=== PATIENT | female | born 1990 | race African-American/Black ===

== ENCOUNTER 2019-05-09 08:34 | Emergency (ER) | payer MEDICAID ==
[~2019-05-09] VITALS: Ht 167.6 cm; Wt 94.8 kg
[2019-05-09 10:11] VITALS: BP 128/72
== END 2019-05-09 11:17 | disposition home or self-care (01) ==
LOC: ER 08:34
DX: O20.0 Threatened abortion (principal); Z3A.10 10 weeks gestation of pregnancy
CPT/HCPCS: 36415; 76801; 84702

== ENCOUNTER 2019-11-28 04:00 | Inpatient (IN) | payer MEDICAID ==
[2019-11-28] VITALS (16 sets, daily range): BP systolic 116–156; BP diastolic 61–92
[~2019-11-28] VITALS: Ht 167.6 cm; Wt 108.9 kg
[2019-11-28] MEDS ORDERED: FERR-7 PO (05:01)
[2019-11-28] MEDS ORDERED: PREN-96 PO (05:01)
[2019-11-28 05:05] LABS: Basophils # (auto) 0 10 ^3/uL (0-0.2); Eosinophils # (auto) 0.1 10 ^3/uL (0-0.8); Eosinophils % (auto) 0.7 % (0.0-7.0); Hematocrit 33.3 % (36.0-46.0); Hemoglobin 10.9 g/dL (12.2-16.2); Lymphocytes # (auto) 2.7 10 ^3/uL (0.4-5.4); Mean Corpuscular Hgb Conc. 32.7 g/dL (32.0-36.0)
[2019-11-28 05:06] LABS: Urine Bacteria NONE SEEN /hpf (None Seen); Urine Blood Negative /uL (Negative); Urine Mucus FEW (None Seen); Urine WBC 4 /hpf (0 - 5)
[2019-11-28 05:07] LABS: Basophils % (auto) 0.3 % (0.0-2.0); Lymphocytes % (auto) 33.7 % (10.0-50.0); Mean Corpuscular Hemoglobin 26.6 pg (28.0-32.0); Mean Corpuscular Volume 81.4 fL (80.0-100.0); Monocytes # (auto) 0.8 10 ^3/uL (0-1.3); Monocytes % (auto) 9.7 % (0.0-12.0); Neutrophils # (auto) 4.4 10 ^3/uL (1.6-8.6); Neutrophils % (auto) 55.6 % (37.0-80.0); Nucleated Red Blood Cells % 0.1 %; Platelet Count (auto) 246 10^3/uL (140-450); Red Blood Cells 4.09 10^6/uL (4.0-5.20); Red Cell Distribution Width 14.8 % (11.8-14.3); White Blood Cell 7.9 10^3/uL (4.4-10.8)
[2019-11-28] MEDS ORDERED: LACTATED RINGER'S 1,000 ML IV ONE (05:15)
[2019-11-28 05:20] LABS: INR 0.98 (0.9-1.15); Partial Thromboplastin Time 26.6 sec (23.64-32.05)
[2019-11-28 05:23] LABS: Albumin 2.5 g/dL (3.4-5.0); Calcium 8.5 mg/dL (8.5-10.1); Potassium 3.6 mmol/L (3.5-5.1)
[2019-11-28 05:28] LABS: BUN/Creatinine Ratio 16.1; Bilirubin, Total 0.3 mg/dL (0.2-1.0)
[2019-11-28] MEDS ORDERED: OXYTOCIN 10UNIT/ML 1ML VIAL IV ONE (07:05)
[2019-11-28] MEDS ORDERED: PHENYLEPHRINE HCL 10 MG/ML VL IV ONE (07:05)
[2019-11-28] MEDS ORDERED: TETRACAINE 1% INJ 2 ML VIAL IJ ONE (07:08)
[2019-11-28] MEDS ORDERED: LACT. RINGERS/OXYTOCIN 20UNITS 1,000 ML IV SCH (07:16)
[2019-11-28] MEDS ORDERED: fentaNYL CITRATE 100 MCG/2 ML VL ONE (07:20)
[2019-11-28] MEDS ORDERED: MIDAZOLAM HCL 1MG/1ML-2 ML VIAL ONE (07:20)
[2019-11-28] MEDS ORDERED: MORPHINE SULF(PF) 0.5MG/ML 10ML VIAL ONE (07:20)
[2019-11-28] MEDS ORDERED: ONDANSETRON HCL 4 MG/2 ML VIAL IV PRN ×2 (07:30→08:45)
[2019-11-28] MEDS ORDERED: ceFAZolin 1GM/50ML 50 ML IV SCH (07:30)
[2019-11-28 07:45] LABS: Alcohol, Urine < 3.0 mg/dL (0-5); Amphetamine Screen, Urine NEGATIVE (NEGATIVE); Barbiturate Scree,Urine NEGATIVE (NEGATIVE); Benzodiazephine Screen, Urine NEGATIVE (NEGATIVE); Cannabinoid Screen, Urine NEGATIVE (NEGATIVE); Cocaine Screen, Urine NEGATIVE (NEGATIVE); Opiate Scree,Urine NEGATIVE (NEGATIVE); Phencyclidine Screen, Urine NEGATIVE (NEGATIVE)
[2019-11-28] MEDS ORDERED: ACCU-CHEK COMFORT CURVE STRIP VI ONE (08:45)
[2019-11-28] MEDS ORDERED: NALOXONE HCL 0.4 MG/ML VIAL IV PRN (08:45)
[2019-11-28] MEDS ORDERED: NALBUPHINE HCL 10 MG/1ml INJECTION SUBCUT ONE (08:45)
[2019-11-28] MEDS ORDERED: KETOROLAC TROMETH 15 mg/ml 1ML VL IV PRN (08:45)
[2019-11-28] MEDS ORDERED: MIDAZOLAM HCL 1MG/1ML-2 ML VIAL IV PRN (08:45)
[2019-11-28] MEDS ORDERED: DexAMETHasone SOD PHOS 10MG/1ML VIAL INJ IV PRN (08:45)
[2019-11-28] MEDS ORDERED: LABETALOL HCL 5 MG/ML 4ML SYRINGE IV PRN (08:45)
[2019-11-28] MEDS ORDERED: HYDROmorphone HCL 2 MG/ML VL IV PRN (08:45)
[2019-11-28] MEDS ORDERED: ePHEDrine SULFATE 50 MG/ML AMP IV PRN (08:45)
[2019-11-28] MEDS ORDERED: diphenhdrAMINE HCL 50 MG/1 ML VL IV PRN (08:45)
--- NOTE | 2019-11-28 09:05 | NUR ---
Report received from LAPPING MACHINE SET UP OPERATOR. Pt vital signs stable, incision clean and dry, and dressing intact. Fundus firm 1 above U. Will continue to monitor.
--- NOTE | 2019-11-28 09:30 | NUR ---
Teaching: Reviewed information in [employer] booklet with patient. Discussed benefits of and risks associated with not . Discussed different positions, proper latch, feeding cues, and baby-led . Provided information of medication side effects related to . All questions and concerns addressed at this time. Patient verbalized understanding of information.
--- NOTE | 2019-11-28 10:27 | NUR ---
Pericare performed. Pt cleaned new pad applied. Fundus firm at u, will continue to monitor.
--- NOTE | 2019-11-28 10:45 | NUR ---
Assumed care after receiving report from Brian Colindres and Jose Enrique Hubbard RN .
[2019-11-28] MEDS ORDERED: ACETAMINOPHEN IV 1000 MG/100ML (10MG/ML) IV ONE (12:15)
[2019-11-28] MEDS ORDERED: ACETAMINOPHEN IV 1000 MG/100ML (10MG/ML) IV PRN (13:45)
--- NOTE | 2019-11-28 15:03 | NUR ---
Report given to A Arleth Rn who will assume patient care.
[2019-11-28] MEDS: ceFAZolin 1GM/50ML 50 ML IV SCH ×2 (15:27→22:34)
--- NOTE | 2019-11-28 15:41 | NUR ---
Pericare performed at this time, minimal bleeding, new underpad and peripad placed.
--- NOTE | 2019-11-28 19:40 | NUR ---
Tresa given lochia is small no clots noted,
[2019-11-28 20:06] LABS: Basophils # (auto) 0 10 ^3/uL (0-0.2); Basophils % (auto) 0.4 % (0.0-2.0); Eosinophils # (auto) 0 10 ^3/uL (0-0.8); Monocytes # (auto) 0.6 10 ^3/uL (0-1.3); Monocytes % (auto) 7.4 % (0.0-12.0); Red Cell Distribution Width 14.6 % (11.8-14.3)
[2019-11-28 20:08] LABS: Eosinophils % (auto) 0.1 % (0.0-7.0); Hematocrit 35.1 % (36.0-46.0); Hemoglobin 11.4 g/dL (12.2-16.2); Lymphocytes # (auto) 1.4 10 ^3/uL (0.4-5.4); Lymphocytes % (auto) 16.4 % (10.0-50.0); Mean Corpuscular Hemoglobin 26.6 pg (28.0-32.0); Mean Corpuscular Hgb Conc. 32.5 g/dL (32.0-36.0); Mean Corpuscular Volume 81.8 fL (80.0-100.0); Neutrophils # (auto) 6.5 10 ^3/uL (1.6-8.6); Neutrophils % (auto) 75.7 % (37.0-80.0); Platelet Count (auto) 233 10^3/uL (140-450); Red Blood Cells 4.29 10^6/uL (4.0-5.20); White Blood Cell 8.6 10^3/uL (4.4-10.8)
--- NOTE | 2019-11-28 22:10 | NUR ---
Fundus firm at the umb. lochia is small no clots noted, hernandez catheter bag emptied with 225 ml's of urine noted, hernandez cath remains in place as ordered, pt sitting on edge of bed offers no c/o dizziness at this time, pt up and ambulated to bathroom with steady gait saritha care given pt able to return demonstration. Pt up and ambulating in the corridor. with steady gait no c/i dizziness at this time. 2044 Pt back to bed call angel within reach instructed to notify staff if exp any problems or has any concerns, no distress will continue to monitor
[2019-11-29] MEDS: MORPHINE SULFATE 4 MG/ML SYR/VIAL IV PRN ×2 (01:04→06:40)
[2019-11-29 03:00] VITALS: BP 128/70
[2019-11-29 04:06] LABS: RPR Non Reactive (Non Reactive)
--- NOTE | 2019-11-29 05:50 | NUR ---
Aviles catheter removed 225 ml's of dark urine emptied, instructions given on the importance of being able to urinate within a 6 hour time frame, pt verbalizes understanding.
[2019-11-29 06:06] LABS: Basophils # (auto) 0 10 ^3/uL (0-0.2); Basophils % (auto) 0.4 % (0.0-2.0); Eosinophils # (auto) 0 10 ^3/uL (0-0.8); Hematocrit 33.1 % (36.0-46.0); Hemoglobin 10.9 g/dL (12.2-16.2); Lymphocytes # (auto) 1.2 10 ^3/uL (0.4-5.4); Lymphocytes % (auto) 17.3 % (10.0-50.0); Mean Corpuscular Hemoglobin 26.7 pg (28.0-32.0); Mean Corpuscular Hgb Conc. 33.1 g/dL (32.0-36.0); Mean Corpuscular Volume 80.6 fL (80.0-100.0); Monocytes # (auto) 0.5 10 ^3/uL (0-1.3); Neutrophils # (auto) 5.1 10 ^3/uL (1.6-8.6); Neutrophils % (auto) 75.3 % (37.0-80.0); Nucleated Red Blood Cells % 0.1 %; Platelet Count (auto) 223 10^3/uL (140-450); Red Cell Distribution Width 14.4 % (11.8-14.3); White Blood Cell 6.7 10^3/uL (4.4-10.8)
--- NOTE | 2019-11-29 06:20 | NUR ---
Report received from Rhiannon Stanford RN on stable pt. Assumed care. Addendum: 11/29/19 at 0627 by Lydia Ramos RN Amended: Links added.
[2019-11-29 06:35] VITALS: BP 128/71
--- NOTE | 2019-11-29 06:35 | NUR ---
Lower abdominal dressing removed with some drainage noted, all portia intact, no redness, drainage, or bleeding noted from incision site. Abdominal binder and SCD's in place. Incentive spirometer at bedside, pt educated on the use of and importance of IS. Pt verbalizes understanding. Addendum: 11/29/19 at 1223 by Lydia Ramos RN Amended: Links added.
[2019-11-29] MEDS: ceFAZolin 1GM/50ML 50 ML IV SCH ×3 (06:39→22:18)
--- NOTE | 2019-11-29 07:00 | NUR ---
Hudson ECHAVARRIAM informed of elevated temperature and CBC results given. Orders received to give 300 ml LR fluid bolus, Tylenol 650mg PO, and Keep Ancef continuos every 8 hrs. Orders to be followed.
[2019-11-29] MEDS ORDERED: BISACODYL 10 MG RECT SUPP PR PRN (07:15)
[2019-11-29] MEDS ORDERED: ACETAMINOPHEN 325 MG TAB PO ONE ×2 (07:15→23:45)
[2019-11-29] MEDS ORDERED: HYDROcodone-ACET 5/325MG TAB PO PRN ×2 (07:15)
[2019-11-29] MEDS: LACTATED RINGER'S 1,000 ML IV SCH (07:53)
--- NOTE | 2019-11-29 08:46 | NUR ---
Temperature reassessed after pt receiving Tylenol 650 mg PO, 300ml LR fluid bolus, and PO hydration. Temp noted to be 101.7, ice packs applied to underarms and back of neck.
--- NOTE | 2019-11-29 09:45 | NUR ---
Dr. Herbert at nurses station, informed of VS Trends, elevated temps, medications given, and interventions performed. CBC results given and assessment of incision site given. Orders received to run Covid 19 test and move pt to room 1 for isolation, no new orders received at this time.
--- NOTE | 2019-11-29 10:00 | NUR ---
RN at bedside to explain POC with pt and significant other regarding Covid 19 nasal swab testing, per Dr. Herbert's orders. Pt educated on how the test is performed and when results would be back, pt also educated that she would be considered a person under investigation and moved to room 1 under isolation until her test results come back. Pt also informed that upon her wishes her could be from her and placed in another room or her may remain with her in her room. Pt also informed that if she wishes to have stay in the room with her, the pt would need to wash her hands prior to all care and and wear a mask at all times. Pt and significant other verbalizes understanding and agree with POC. Pt wishes for her to remain in the room with her. Hospital mask provided to pt.
--- NOTE | 2019-11-29 11:00 | NUR ---
Pt ambulates with steady gait in hallway with mask on to room 1, pushing open crib, with all belongings and significant other. No signs of discomfort noted.
[2019-11-29 11:19] VITALS: BP 129/71
[2019-11-29] MEDS: IBUPROFEN 800 MG TAB PO PRN ×2 (11:20→22:17)
[2019-11-29] MEDS: SIMETHICONE 80 MG CHEWABLE TABLET PO SCH ×3 (11:20→22:18)
[2019-11-29] MEDS: DOCUSATE SOD 100 MG CAP PO SCH ×2 (11:20→22:18)
[2019-11-29] MEDS ORDERED: LACTATED RINGER'S 1,000 ML IV SCH (14:15)
[2019-11-29 15:12] VITALS: BP 109/57
--- NOTE | 2019-11-29 18:15 | NUR ---
Report given to Barbara Murphy RN and Barbara Gomez RN on stable pt. Relinquished care. Addendum: 11/29/19 at 1827 by Lydia Ramos RN Amended: Links added.
[2019-11-29 19:00] VITALS: BP 120/68
--- NOTE | 2019-11-29 19:45 | NUR ---
Hematology calls unit and states they are unable to run COVID test tonight and will have to try again in the morning. Charge nurse made aware.
--- NOTE | 2019-11-29 20:30 | NUR ---
IV in left hand pulled out at this time. Catheter still intact. New IV access obtained in right hand, via clean sterile technique by inserting 20 gauge catheter after 1 attempt. IV secured properly. No trauma to site. Patient tolerated procedure well.
[2019-11-29 22:30] VITALS: BP 123/66
--- NOTE | 2019-11-29 23:40 | NUR ---
Patient c/o feeling warm, temperature taken of 100.5. Cooling measures given and provided pt with cool wash cloth. Jonathan STEINBERG called for update on patient. Orders given for Tylenol 650mg PO q4h and to draw CBC in the morning. Will follow orders.
[2019-11-29] MEDS ORDERED: ACETAMINOPHEN 325 MG TAB PO PRN (23:45)
[2019-11-30] VITALS (7 sets, daily range): BP systolic 118–139; BP diastolic 56–82
[2019-11-30] MEDS: SIMETHICONE 80 MG CHEWABLE TABLET PO SCH ×4 (05:34→21:31)
[2019-11-30 06:07] LABS: Basophils # (auto) 0 10 ^3/uL (0-0.2); Eosinophils # (auto) 0 10 ^3/uL (0-0.8); Hemoglobin 11.3 g/dL (12.2-16.2); Lymphocytes # (auto) 1.3 10 ^3/uL (0.4-5.4); Monocytes # (auto) 0.6 10 ^3/uL (0-1.3); Neutrophils # (auto) 2.4 10 ^3/uL (1.6-8.6); Red Blood Cells 4.24 10^6/uL (4.0-5.20)
[2019-11-30 06:09] LABS: Basophils % (auto) 0.5 % (0.0-2.0); Eosinophils % (auto) 0.2 % (0.0-7.0); Hematocrit 34.5 % (36.0-46.0); Lymphocytes % (auto) 31.1 % (10.0-50.0); Mean Corpuscular Hemoglobin 26.8 pg (28.0-32.0); Mean Corpuscular Hgb Conc. 32.9 g/dL (32.0-36.0); Mean Corpuscular Volume 81.5 fL (80.0-100.0); Monocytes % (auto) 12.8 % (0.0-12.0); Neutrophils % (auto) 55.4 % (37.0-80.0); Nucleated Red Blood Cells % 0.1 %; Platelet Count (auto) 211 10^3/uL (140-450); Red Cell Distribution Width 14.9 % (11.8-14.3); White Blood Cell 4.3 10^3/uL (4.4-10.8)
[2019-11-30] MEDS: ceFAZolin 1GM/50ML 50 ML IV SCH (07:28)
[2019-11-30] MEDS: DOCUSATE SOD 100 MG CAP PO SCH ×2 (09:41→21:31)
[2019-11-30] MEDS: IBUPROFEN 800 MG TAB PO PRN ×2 (13:32→22:36)
--- NOTE | 2019-11-30 14:44 | NUR ---
IV OUT Called to room d/t PT states "IV fell out." Catheter noted to be dangling. IV completely removed with tip intact, pressure dressing applied to site
--- NOTE | 2019-11-30 14:48 | NUR ---
Call placed to Dr Antonio, updated her on PT's IV out. Orders received to change abx to Keflex 500 PO QID
[2019-11-30] MEDS ORDERED: CEPHALEXIN 250 MG CAP PO SCH (15:00)
[2019-11-30] MEDS: CEPHALEXIN 250 MG CAP PO SCH (21:27)
[2019-12-01 03:06] VITALS: BP 128/73
[2019-12-01] MEDS: CEPHALEXIN 250 MG CAP PO SCH ×2 (04:31→09:28)
[2019-12-01] MEDS: SIMETHICONE 80 MG CHEWABLE TABLET PO SCH (06:00)
[2019-12-01 07:21] VITALS: BP 123/72
--- NOTE | 2019-12-01 07:50 | NUR ---
dr armendariz rounded on the pt, orders received to remove the portia and carried out
--- NOTE | 2019-12-01 07:58 | NUR ---
C/S Staple Removal DC Note: Orders received to remove portia. Portia removed using sterile technique. Lower abdominal incision approximated, no drainage/redness/inflammation visualized at time of removal. Steri-strips applied. Education provided on incisional care. Patient verbalized understanding and willingness to comply to instructions/teaching provided.
[2019-12-01] MEDS: DOCUSATE SOD 100 MG CAP PO SCH (10:00)
--- NOTE | 2019-12-01 10:02 | NUR ---
PT STATES HAD A BOWEL MOVEMENT
[2019-12-01 10:56] VITALS: BP 125/68
--- NOTE | 2019-12-01 11:00 | NUR ---
Discharge: Discharge instructions given as ordered. Pt encouraged to follow up with [facility] as instructed. All questions and concerns addressed. Patient verbalized understanding. Medication reconciliation completed and copy given to patient. All required/requested vaccines given and copies of vaccinations given to patient. Patient encouraged to prepare to depart unit.
--- NOTE | 2019-12-01 11:30 | NUR ---
Discharge: Patient taken to vehicle via wheelchair with all personal belongings, accompanied by staff and family member. No distress noted at time of departure, no adverse changes in status since initial assessment.
== END 2019-12-01 11:40 | disposition home or self-care (01) | DRG 540 ==
LOC: LDRP 04:00
PROVIDERS: ADMIT Obstetrics & Gynecology; ATTEND Obstetrics & Gynecology
PROC: 10D00Z1 Extraction of Products of Conception, Low, Open Approach (ICD-10-PCS; principal; 2019-11-28 07:15)
DX: O24.420 Gestational diabetes mellitus in childbirth, diet controlled (principal); E66.9 Obesity, unspecified; O99.214 Obesity complicating childbirth; N73.6 Female pelvic peritoneal adhesions (postinfective); O99.89 Other specified diseases and conditions complicating pregnancy, childbirth and the puerperium; O34.219 Maternal care for unspecified type scar from previous cesarean delivery; Z37.0 Single live birth; Z3A.39 39 weeks gestation of pregnancy; Z03.818 Encounter for observation for suspected exposure to other biological agents ruled out
CPT/HCPCS: 36415; 51702; 80053; 80307; 81001; 82948; 82962; 84112; 85025; 85610; 85730; 86592; 86850; 86900; 86901; 96365; 96366; 96374; 96375; G0378; J0131; J0690; J2250; J2405; J2590

== ENCOUNTER 2019-12-04 11:57 | Inpatient (IN) | payer MEDICAID ==
[~2019-12-04] VITALS: Ht 167.6 cm; Wt 95.6 kg
[~2019-12-04 11:57] MED LIST: FERR-7 PO; PREN-96 PO
[2019-12-04] MEDS ORDERED: IOHEXOL 350 MG/ML 100ML IJ ONE (12:37)
[2019-12-04 12:58] LABS: Basophils # (auto) 0.1 10 ^3/uL (0-0.2); Basophils % (auto) 0.9 % (0.0-2.0); Eosinophils # (auto) 0.1 10 ^3/uL (0-0.8); Lymphocytes # (auto) 2.1 10 ^3/uL (0.4-5.4); Mean Corpuscular Volume 81.6 fL (80.0-100.0); Monocytes # (auto) 0.4 10 ^3/uL (0-1.3); Nucleated Red Blood Cells % 0.1 %; Red Cell Distribution Width 14.9 % (11.8-14.3)
[2019-12-04 13:00] LABS: Eosinophils % (auto) 1.2 % (0.0-7.0); Hematocrit 35.1 % (36.0-46.0); Hemoglobin 11.4 g/dL (12.2-16.2); Lymphocytes % (auto) 30.3 % (10.0-50.0); Mean Corpuscular Hemoglobin 26.5 pg (28.0-32.0); Mean Corpuscular Hgb Conc. 32.4 g/dL (32.0-36.0); Monocytes % (auto) 5.6 % (0.0-12.0); Neutrophils # (auto) 4.3 10 ^3/uL (1.6-8.6); Platelet Count (auto) 268 10^3/uL (140-450); White Blood Cell 6.9 10^3/uL (4.4-10.8)
[2019-12-04 13:12] LABS: Albumin 2.6 g/dL (3.4-5.0); Anion Gap 7 (5-15); Blood Urea Nitrogen 9 mg/dL (7-18); Calcium 8.2 mg/dL (8.5-10.1); Carbon Dioxide 24 mmol/L (21-32); Chloride 112 mmol/L (98-107); Glucose 85 mg/dL (74-106); Potassium 3.7 mmol/L (3.5-5.1); Sodium 143 mmol/L (136-145)
[2019-12-04 13:17] LABS: Alanine Aminotransferase 33 U/L (13-56); Alkaline Phosphatase 87 U/L (45-117); Aspartate Aminotransferase 23 U/L (15-37); Bilirubin, Total 0.3 mg/dL (0.2-1.0); GFR African American 130 mL/min; GFR Non-African American 108 mL/min
[2019-12-04] MEDS ORDERED: MORPHINE SULF INJ 2 MG/ML SYRINGE 1ML IV PRN (15:45)
[2019-12-04] MEDS ORDERED: METOCLOPRAMIDE HCL 5MG/ml INJ 2ml VIAL IV PRN (15:45)
[2019-12-04] MEDS ORDERED: ALUM & MAG HYDROX-SIMETH LIQ(MAALOX) 30 ML PO PRN (15:45)
[2019-12-04] MEDS ORDERED: VANCOMYCIN PER PHARMACY 0 MG IV SCH (15:45)
[2019-12-04] MEDS ORDERED: ACETAMINOPHEN 500 MG TAB PO PRN (15:45)
[2019-12-04] MEDS ORDERED: DOCUSATE SOD 100 MG CAP PO PRN (15:45)
[2019-12-04] MEDS ORDERED: NITROGLYCERIN 0.4 MG SL TAB SL PRN (15:45)
[2019-12-04] MEDS ORDERED: HYDROCORTISONE SOD SUCC 100 MG/2ML INJ VIAL IV ONE (15:45)
[2019-12-04] MEDS ORDERED: LORazepam 0.5 MG TAB PO PRN (15:45)
[2019-12-04 16:22] LABS: Magnesium 2.4 mg/dL (1.6-2.6)
[2019-12-04 16:29] LABS: CRP High Sensitivity 2.73 mg/dL (< 0.3)
[2019-12-04] MEDS: ZINC SULFATE 220mg CAP or TAB PO SCH (16:54)
[2019-12-04] MEDS: CHOLECALCIFEROL (VITD3) 1,000IU=25mCg TAB PO SCH (16:54)
[2019-12-04] MEDS: PIPERACILLIN-TAZOB 3.375GM 100 ML IV SCH ×2 (16:54→21:50)
[2019-12-04] MEDS: ASCORBIC ACID 1,000 MG TAB PO SCH (16:54)
--- NOTE | 2019-12-04 17:35 | NUR ---
Telemetry admit from VIRGIE SILVA admitted to Telemetry unit after SBAR received. Patient oriented to MARYELLEN MATTHEW, primary RN, unit, room, bed, and unit policies regarding patient care and visiting hours. Patient now on continuous telemetry monitoring. Patient placed on bedside oxygen, weighed by bedscale and encouraged to call if they need something. All questions and concerns addressed, patient verbalized understanding.
[2019-12-04] MEDS ORDERED: HYDROCORTISONE SOD SUCC 100 MG/2ML INJ VIAL IV SCH (18:00)
[2019-12-04 18:30] VITALS: BP 152/90
[2019-12-04 18:41] LABS: Urine Bacteria NONE SEEN /hpf (None Seen); Urine Blood TRACE /uL (Negative); Urine Specific Gravity 1.028 (1.001-1.035); Urine WBC <1 /hpf (0 - 5)
[2019-12-04] MEDS: VANCOMYCIN 1GM/250ML 250 ML IV SCH (19:00)
[2019-12-04] MEDS: FUROSEMIDE 100 MG/10ML VIAL IV SCH (19:00)
--- NOTE | 2019-12-04 19:40 | NUR ---
Opening Shift Note Assumed care of patient, awake and alert. No S/S of distress/SOB or pain. Instructed on POC and to call for assist PRN, will continue to monitor for changes Q1hr and PRN.
[2019-12-04 20:00] VITALS: BP 149/92
--- NOTE | 2019-12-04 20:00 | NUR ---
Low HR Tele monitor showing HR of mid 40's to low 50'. BP is 149/92 and patient is asymptomatic. Paged hospitalist. Will continue to monitor.
[2019-12-04] MEDS ORDERED: ALBUTEROL SULF HFA 90MCG INH 200DOSE IN SCH ×2 (22:00)
--- NOTE | 2019-12-04 22:25 | NUR ---
Received call back from Hospitalist and new orders for Cardiology consult.
[2019-12-05] VITALS: BP 136/91
[2019-12-05] MEDS: VANCOMYCIN 1GM/250ML 250 ML IV SCH ×2 (03:02→10:58)
[2019-12-05 04:00] VITALS: BP 118/68
[2019-12-05] MEDS: PIPERACILLIN-TAZOB 3.375GM 100 ML IV SCH ×4 (04:20→21:36)
[2019-12-05] MEDS: FUROSEMIDE 100 MG/10ML VIAL IV SCH (06:56)
[2019-12-05 07:02] LABS: Basophils # (auto) 0 10 ^3/uL (0-0.2); Basophils % (auto) 0.4 % (0.0-2.0); Eosinophils # (auto) 0 10 ^3/uL (0-0.8); Hemoglobin 11.9 g/dL (12.2-16.2); Lymphocytes % (auto) 41.6 % (10.0-50.0); Neutrophils # (auto) 3.1 10 ^3/uL (1.6-8.6); White Blood Cell 6.4 10^3/uL (4.4-10.8)
[2019-12-05 07:04] LABS: Eosinophils % (auto) 0.5 % (0.0-7.0); Hematocrit 35.9 % (36.0-46.0); Lymphocytes # (auto) 2.7 10 ^3/uL (0.4-5.4); Mean Corpuscular Hemoglobin 26.7 pg (28.0-32.0); Mean Corpuscular Hgb Conc. 33.1 g/dL (32.0-36.0); Mean Corpuscular Volume 80.8 fL (80.0-100.0); Monocytes # (auto) 0.6 10 ^3/uL (0-1.3); Monocytes % (auto) 8.7 % (0.0-12.0); Neutrophils % (auto) 48.8 % (37.0-80.0); Platelet Count (auto) 287 10^3/uL (140-450); Red Blood Cells 4.44 10^6/uL (4.0-5.20); Red Cell Distribution Width 14.5 % (11.8-14.3)
[2019-12-05 07:18] LABS: Albumin 2.4 g/dL (3.4-5.0); Calcium 8.1 mg/dL (8.5-10.1)
[2019-12-05 07:20] LABS: BUN/Creatinine Ratio 11.3; Bilirubin, Total 0.4 mg/dL (0.2-1.0); Total Protein 6.7 g/dL (6.4-8.2)
[2019-12-05 07:28] LABS: CRP High Sensitivity 2.89 mg/dL (< 0.3); Phosphorus 3.9 mg/dL (2.5-4.90)
[2019-12-05 07:35] LABS: INR 1.05 (0.9-1.15)
[2019-12-05 07:38] LABS: Potassium 2.9 mmol/L (3.5-5.1)
[2019-12-05 08:00] VITALS: BP 143/78
--- NOTE | 2019-12-05 08:30 | NUR ---
Paged hospitalist regarding critical lab value of potassium 2.9, awaiting call back.
[2019-12-05] MEDS: ZINC SULFATE 220mg CAP or TAB PO SCH (09:33)
[2019-12-05] MEDS: ASCORBIC ACID 1,000 MG TAB PO SCH (09:33)
[2019-12-05] MEDS: ENOXAPARIN SOD 40 MG/0.4 ML SYRINGE SC SCH (09:34)
[2019-12-05] MEDS: CHOLECALCIFEROL (VITD3) 1,000IU=25mCg TAB PO SCH (09:35)
--- NOTE | 2019-12-05 10:52 | NUR ---
Called and spoke to Dr. Martin, doctor informed of the critical lab value potassium 2.9, orders received for potassium 40 meq IV X1, potassium po 40 meq X1, 1/2 NS + 20meq at 100 ml/hr, pulmo consult, and to send stool for c.diff, wbc, and culture.
[2019-12-05] MEDS: POTASSIUM CHL 20MEQ/100ML 100 ML IV SCH ×2 (10:59→12:53)
[2019-12-05] MEDS ORDERED: SOD CHL 0.45% WITH 20MEQ KCL 1,000 ML IV SCH (11:00)
[2019-12-05] MEDS ORDERED: POTASSIUM CHL 20 Meq TABLET PO ONE (11:00)
[2019-12-05 13:00] VITALS: BP 133/91
[2019-12-05] MEDS: SOD CHL 0.45% WITH 20MEQ KCL 1,000 ML IV SCH ×2 (14:22→21:15)
[2019-12-05 16:10] VITALS: BP 134/86
--- NOTE | 2019-12-05 16:10 | NUR ---
Dr. Martin at bed side to see pt, doctor discussed the plan of care with pt.
--- NOTE | 2019-12-05 16:15 | NUR ---
Report given to Valerie / RN, pt taken to room 212 A.
--- NOTE | 2019-12-05 16:20 | NUR ---
Pt Arrived on Unit Pt arrived on unit via wheelchair from [facility]. Pt is a/ox4 with no s/s of distress or SOB. Safety measures maintained with call light within reach, bed in lowest position and side rails up. Will continue to monitor.
--- NOTE | 2019-12-05 18:40 | NUR ---
UA Sent to Lab
[2019-12-05] MEDS: IPRATROPIUM BROM 0.5 MG/2.5ML INH SOL NEB SCH (18:52)
[2019-12-05] MEDS: ALBUTEROL SULF 2.5 MG/0.5ML(0.5%) NEB SOLN NEB SCH (18:52)
[2019-12-05 19:11] LABS: Urine Bacteria FEW /hpf (None Seen); Urine Blood 3+ /uL (Negative); Urine Mucus FEW (None Seen); Urine Specific Gravity 1.004 (1.001-1.035); Urine WBC 3 /hpf (0 - 5)
[2019-12-05 19:24] LABS: Alcohol, Urine < 3.0 mg/dL (0-5); Amphetamine Screen, Urine NEGATIVE (NEGATIVE); Barbiturate Scree,Urine NEGATIVE (NEGATIVE); Benzodiazephine Screen, Urine NEGATIVE (NEGATIVE); Cannabinoid Screen, Urine NEGATIVE (NEGATIVE); Cocaine Screen, Urine NEGATIVE (NEGATIVE); Opiate Scree,Urine NEGATIVE (NEGATIVE); Phencyclidine Screen, Urine NEGATIVE (NEGATIVE)
--- NOTE | 2019-12-05 19:30 | NUR ---
Opening Shift Note Assumed care of patient, awake and alert. No S/S of distress/SOB or pain. Instructed on POC and to call for assist PRN. Bed in lowest locked position, call light within reach, side rails up x2. Will continue to monitor for changes Q1hr and PRN.
[2019-12-05 21:25] VITALS: BP 139/73
[2019-12-06 02:25] VITALS: BP 139/73
[2019-12-06] MEDS: PIPERACILLIN-TAZOB 3.375GM 100 ML IV SCH (04:02)
[2019-12-06] MEDS: SOD CHL 0.45% WITH 20MEQ KCL 1,000 ML IV SCH (05:15)
[2019-12-06 05:36] VITALS: BP 146/87
[2019-12-06 06:07] LABS: Basophils # (auto) 0 10 ^3/uL (0-0.2); Basophils % (auto) 0.6 % (0.0-2.0); Eosinophils # (auto) 0.1 10 ^3/uL (0-0.8); Eosinophils % (auto) 0.7 % (0.0-7.0); Hematocrit 37.4 % (36.0-46.0); Hemoglobin 12.2 g/dL (12.2-16.2); Lymphocytes # (auto) 2.3 10 ^3/uL (0.4-5.4); Lymphocytes % (auto) 30.9 % (10.0-50.0); Mean Corpuscular Hemoglobin 26.2 pg (28.0-32.0); Mean Corpuscular Hgb Conc. 32.6 g/dL (32.0-36.0); Mean Corpuscular Volume 80.5 fL (80.0-100.0); Monocytes # (auto) 0.6 10 ^3/uL (0-1.3); Monocytes % (auto) 7.9 % (0.0-12.0); Neutrophils # (auto) 4.3 10 ^3/uL (1.6-8.6); Neutrophils % (auto) 59.9 % (37.0-80.0); Nucleated Red Blood Cells % 0.1 %; Platelet Count (auto) 316 10^3/uL (140-450); Red Blood Cells 4.65 10^6/uL (4.0-5.20); Red Cell Distribution Width 14.8 % (11.8-14.3); White Blood Cell 7.3 10^3/uL (4.4-10.8)
[2019-12-06 06:18] LABS: Magnesium 2.6 mg/dL (1.6-2.6); Potassium 3.2 mmol/L (3.5-5.1)
[2019-12-06 06:20] LABS: BUN/Creatinine Ratio 10.2
[2019-12-06] MEDS: IPRATROPIUM BROM 0.5 MG/2.5ML INH SOL NEB SCH ×2 (06:29→11:32)
[2019-12-06] MEDS: ALBUTEROL SULF 2.5 MG/0.5ML(0.5%) NEB SOLN NEB SCH ×2 (06:29→11:32)
--- NOTE | 2019-12-06 07:43 | NUR ---
Opening Note Assumed pt care from NOC RN. Pt is a/ox4 with no s/ s.s of distress or SOB. Pt is currently sitting upright in bed with no complaints at this time. Discussed POC with pt, pt verbalized understanding. Safety measures maintained with call light within reach, bed in lowest position and side rails up. Will continue to monitor.
[2019-12-06] MEDS: ENOXAPARIN SOD 40 MG/0.4 ML SYRINGE SC SCH (08:32)
[2019-12-06 08:55] VITALS: BP 139/81
[2019-12-06] MEDS ORDERED: cefTRIAXone 1GM/50ML D5W 50 ML IV SCH (09:00)
--- NOTE | 2019-12-06 10:34 | NUR ---
ECHO at Bedside
[2019-12-06] MEDS ORDERED: AZIT500T66 PO (11:02)
[2019-12-06 12:06] VITALS: BP 139/81
--- NOTE | 2019-12-06 12:36 | NUR ---
IV and Tele 41 D/C'ed IV to pt's L AC removed. Catheter was removed fully intact. Site is asymptomatic. Pressure was applied to site for 3 minutes with gauze and then wrapped in coban. Pt instructed to keep dressing on for 30 minutes; pt verbalized understanding. Tele 41 removed and sent back to ICU Staff made aware.
--- NOTE | 2019-12-06 12:46 | NUR ---
Pt D/C'ed Off Unit Pt d/c'ed off unit via wheelchair. Pt is a/ox4 with no s/s of distress or SOB. Pt d/c'ed with all belongings, education material, all follow up information as well as prescriptions. All questions were answered. IV and tele box was d/c'ed prior to d/c.
== END 2019-12-06 12:46 | disposition home or self-care (01) | DRG 113 ==
LOC: ER 11:57 → TELE 11:58 → TELE-EAST 23:46 → TELE-CENTR 12-05 16:40
PROVIDERS: ADMIT Hospitalist; ATTEND Hospitalist
DX: J02.0 Streptococcal pharyngitis (principal); J12.9 Viral pneumonia, unspecified; B95.0 Streptococcus, group A, as the cause of diseases classified elsewhere; D64.9 Anemia, unspecified; E66.9 Obesity, unspecified; J98.11 Atelectasis; E87.6 Hypokalemia; Z82.49 Family history of ischemic heart disease and other diseases of the circulatory system; Z86.32 Personal history of gestational diabetes; Z87.891 Personal history of nicotine dependence; Z83.3 Family history of diabetes mellitus; Z20.828 Contact with and (suspected) exposure to other viral communicable diseases; Z68.35 Body mass index [BMI] 35.0-35.9, adult
CPT/HCPCS: 36415; 71275; 80048; 80053; 80061; 80202; 80307; 81001; 82550; 82728; 83036; 83605; 83615; 83735; 83880; 84100; 84443; 84484; 85025; 85048; 85379; 85610; 85652; 85730; 86141; 86160; 87040; 87045; 87427; 87493; 87804; 87880; 93005; 93306; 94640; G0378; J0696; J2543; J3480